=== PATIENT | female | born 1945 | race Caucasian/White ===

== ENCOUNTER 2016-04-02 11:28 | Inpatient (IN) | payer OTHER ==
[~2016-04-02] VITALS: Ht 160 cm; Wt 60.3 kg
[~2016-04-02 11:28] MED LIST: ACTOS30 MG PO; ASPIRIN EC325 MG PO; BIAXIN500 MG PO; BREO ELLIPTA I1 EACH IH; DUONEB 2.5-0.5 M3 ML AEROSOL; HYDROCODON-ACE1 EAC8 PO; KOMBIGLYZE XR1 EAC2 PO; LISINOPRIL10 MG PO; LORATADINE10 M2 PO; NEXIUM40 MG PO; NUCYNTA50 MG PO; OXYCODONE HCL5 MG PO; PERCOCET 5/31 TABLET PO; PREDNISONE20 MG PO; SPIRIVA RESPIMAT4 G1 IH; TYLENOL REGULA325 MG PO; VENTOLIN HFA18 GM IH; VICODIN 5-3001 EACH PO; VICODIN ES 7.51 EAC1 PO; ZOFRAN4 MG PO
[2016-04-02 12:09] LABS: EOSINOPHIL (%) 0.7 % (0-5); EOSINOPHIL COUNT 0.1 K/uL (0-0.3); HEMATOCRIT 27.8 % (36.0-46.0); IMMATURE GRANULOCYTE (%) 1.4 % (0.0-0.7); IMMATURE GRANULOCYTE COUNT 1.7 K/uL; LYMPHOCYTE COUNT 0.7 K/uL (1.0-2.8); MCH 31.6 PG (29.0-34.0); MCHC 33.8 G/DL (30.0-36.0); MCV 93.6 FL (83-99); MEAN PLAT.VOLUME 8.3 uM^3 (9.5-12.4); MONOCYTE (%) 7.4 % (3-12); MONOCYTE COUNT 0.9 K/uL (0-0.8); NEUTROPHIL (%) 84.8 % (45-76); NEUTROPHIL COUNT 10.6 K/uL (1.8-6.4); PLATELET COUNT 292 K/uL (156-360); RBC DIS.WIDTH-CV 14.6 % (11.8-14.6); RBC DIS.WIDTH-SD 47.9 % (39-53); RED BLOOD COUNT 2.97 M/uL (3.80-5.20); WHITE BLOOD COUNT 12.5 K/uL (4.1-10.2)
[2016-04-02 12:20] LABS: CHLORIDE 87 mEq/L (99-109); POTASSIUM 4.1 mEq/L (3.7-5.4); SODIUM 123 mEq/L (136-147)
[2016-04-02 12:22] LABS: GLUCOSE 115 mg/dL (70-99)
[2016-04-02 12:23] LABS: ANION GAP 11 MEQ/L (2-14)
[2016-04-02 12:24] LABS: TOTAL BILIRUBIN 0.5 mg/dL (0.0-1.0)
[2016-04-02 12:25] LABS: ALKALINE PHOSPHATASE 36 IU/L (3-129)
[2016-04-02 12:26] LABS: GFR ESTIMATE (CALCULATED) 43 mL/min/
[2016-04-02 12:27] LABS: UREA NITROGEN (BUN) 14 mg/dL (9-23)
[2016-04-02 12:30] LABS: D-DIMER ELISA 0.47 mg/L FEU (< 0.57)
[2016-04-02 12:32] LABS: TROP-I INTERPRETATION NEGATIVE; TROPONIN-I < 0.01 ng/mL (0.0-0.30)
[2016-04-02] MEDS ORDERED: ASPIR-LOW81 MG PO (14:46)
[2016-04-02] MEDS ORDERED: JENTADUETO 2.51 EAC2 PO (14:48)
[2016-04-02] MEDS ORDERED: OCEAN NASAL 0.645 ML BOTH NARES (14:49)
[2016-04-02] MEDS ORDERED: LISINOPRIL10 MG PO (14:50)
[2016-04-02] MEDS ORDERED: LEVOTHYROXINE125 MCG PO (14:50)
[2016-04-02] MEDS ORDERED: MYCOSTATIN 100,60 ML PO (14:51)
[2016-04-02] MEDS ORDERED: SSD25GM TP (14:51)
[2016-04-02] MEDS ORDERED: PREDNISONE10 MG PO (14:52)
[2016-04-02] MEDS ORDERED: IRON325 M1 PO (14:54)
[2016-04-02] MEDS ORDERED: CYANOCOBALAM1000 MCG PO (14:54)
[2016-04-02] MEDS ORDERED: VITAMIN D31000 UNI2 PO (14:54)
[2016-04-02 15:59] LABS: INFLUENZA A VIRAL ANTIGEN NEGATIVE; INFLUENZA B VIRAL ANTIGEN NEGATIVE
[2016-04-02 18:15] VITALS: BP 125/64
[2016-04-02 23:45] VITALS: BP 125/59
[2016-04-03 04:13] VITALS: BP 126/58
[2016-04-03 07:10] VITALS: BP 139/62
[2016-04-03 07:12] LABS: HEMATOCRIT 26.7 % (36.0-46.0); MCH 31.6 PG (29.0-34.0); MCHC 34.1 G/DL (30.0-36.0); MCV 92.7 FL (83-99); MEAN PLAT.VOLUME 8.8 uM^3 (9.5-12.4); PLATELET COUNT 263 K/uL (156-360); RBC DIS.WIDTH-CV 15.1 % (11.8-14.6); RBC DIS.WIDTH-SD 51.7 % (39-53); RED BLOOD COUNT 2.88 M/uL (3.80-5.20); WHITE BLOOD COUNT 12.7 K/uL (4.1-10.2)
[2016-04-03 07:19] LABS: EOSINOPHIL (%) 0 % (0-5); IMMATURE GRANULOCYTE (%) 0.8 % (0.0-0.7); IMMATURE GRANULOCYTE COUNT 0.1 K/uL; LYMPHOCYTE COUNT 0.2 K/uL (1.0-2.8); MONOCYTE (%) 1.3 % (3-12); MONOCYTE COUNT 0.2 K/uL (0-0.8); NEUTROPHIL (%) 96.1 % (45-76); NEUTROPHIL COUNT 12.2 K/uL (1.8-6.4)
[2016-04-03 07:35] LABS: ALKALINE PHOSPHATASE 36 IU/L (3-129); ANION GAP 9 MEQ/L (2-14); CHLORIDE 94 MEQ/L (99-109); GFR ESTIMATE (CALCULATED) 58 mL/min/; GLUCOSE 139 mg/dL (70-99); SAMPLE HEMOLYSIS CHECK 0; SAMPLE ICTERIC CHECK 0; SAMPLE LIPEMIA CHECK 0; SODIUM 128 MEQ/L (136-147); UREA NITROGEN (BUN) 14 mg/dL (9-23)
[2016-04-03 07:38] LABS: POTASSIUM 5.1 MEQ/L (3.7-5.4); TOTAL BILIRUBIN 0.3 MG/DL (0.0-1.0)
[2016-04-03 11:04] VITALS: BP 124/58
[2016-04-03 15:58] VITALS: BP 130/60
[2016-04-03 20:09] VITALS: BP 127/60
[2016-04-04] VITALS (7 sets, daily range): BP systolic 118–144; BP diastolic 58–82
[2016-04-04 07:17] LABS: MCHC 33.9 G/DL (30.0-36.0); MCV 94.3 FL (83-99); MEAN PLAT.VOLUME 8.8 uM^3 (9.5-12.4); PLATELET COUNT 259 K/uL (156-360); RBC DIS.WIDTH-CV 15.4 % (11.8-14.6); RBC DIS.WIDTH-SD 52.9 % (39-53); RED BLOOD COUNT 2.97 M/uL (3.80-5.20)
[2016-04-04 07:43] LABS: ALKALINE PHOSPHATASE 36 IU/L (3-129); ANION GAP 9 MEQ/L (2-14); CHLORIDE 93 MEQ/L (99-109); GFR ESTIMATE (CALCULATED) 47 mL/min/; GLUCOSE 118 mg/dL (70-99); POTASSIUM 4.7 MEQ/L (3.7-5.4); SAMPLE HEMOLYSIS CHECK 0; SAMPLE ICTERIC CHECK 0; SAMPLE LIPEMIA CHECK 0; SODIUM 129 MEQ/L (136-147); TOTAL BILIRUBIN 0.3 MG/DL (0.0-1.0); UREA NITROGEN (BUN) 17 mg/dL (9-23)
[2016-04-05 07:35] LABS: EOSINOPHIL (%) 0 % (0-5); HEMATOCRIT 25.3 % (36.0-46.0); IMMATURE GRANULOCYTE (%) 1.2 % (0.0-0.7); IMMATURE GRANULOCYTE COUNT 0.2 K/uL; LYMPHOCYTE COUNT 0.3 K/uL (1.0-2.8); MCH 32.7 PG (29.0-34.0); MCHC 34.4 G/DL (30.0-36.0); MCV 95.1 FL (83-99); MONOCYTE (%) 2.3 % (3-12); MONOCYTE COUNT 0.3 K/uL (0-0.8); NEUTROPHIL (%) 94.2 % (45-76); NEUTROPHIL COUNT 12.1 K/uL (1.8-6.4); PLATELET COUNT 253 K/uL (156-360); RBC DIS.WIDTH-CV 15.5 % (11.8-14.6); RBC DIS.WIDTH-SD 53.8 % (39-53); RED BLOOD COUNT 2.66 M/uL (3.80-5.20); WHITE BLOOD COUNT 12.8 K/uL (4.1-10.2)
[2016-04-05 08:00] VITALS: BP 133/65
[2016-04-05 08:09] LABS: ALKALINE PHOSPHATASE 39 IU/L (3-129); ANION GAP 9 MEQ/L (2-14); CHLORIDE 97 MEQ/L (99-109); GFR ESTIMATE (CALCULATED) 43 mL/min/; GLUCOSE 118 mg/dL (70-99); POTASSIUM 5.3 MEQ/L (3.7-5.4); SAMPLE HEMOLYSIS CHECK 0; SAMPLE ICTERIC CHECK 0; SAMPLE LIPEMIA CHECK 0; SODIUM 136 MEQ/L (136-147); TOTAL BILIRUBIN 0.3 MG/DL (0.0-1.0); UREA NITROGEN (BUN) 22 mg/dL (9-23)
[2016-04-05 15:10] VITALS: BP 140/72
[2016-04-05 20:21] VITALS: BP 162/85
[2016-04-05 22:18] VITALS: BP 135/69
[2016-04-05 22:35] VITALS: BP 150/70
[2016-04-05 23:34] VITALS: BP 156/67
[2016-04-06] VITALS (13 sets, daily range): BP systolic 138–193; BP diastolic 62–85
[2016-04-06 07:29] LABS: HEMATOCRIT 33.7 % (36.0-46.0); MCV 91.6 FL (83-99)
[2016-04-06 07:35] LABS: IRON 94 MCG/DL (35-150)
[2016-04-06 08:10] LABS: FERRITIN 128 NG/ML (10-291)
[2016-04-07 03:31] VITALS: BP 133/65
[2016-04-07 06:45] VITALS: BP 137/82
[2016-04-07 07:54] LABS: HEMATOCRIT 34.1 % (36.0-46.0); MCH 30.3 PG (29.0-34.0); MCHC 32.6 G/DL (30.0-36.0); MCV 93.2 FL (83-99); MEAN PLAT.VOLUME 9.2 uM^3 (9.5-12.4); PLATELET COUNT 228 K/uL (156-360); RBC DIS.WIDTH-CV 17.2 % (11.8-14.6); RBC DIS.WIDTH-SD 58.5 % (39-53); WHITE BLOOD COUNT 9.9 K/uL (4.1-10.2)
[2016-04-07 07:55] LABS: RED BLOOD COUNT 3.66 M/uL (3.80-5.20)
[2016-04-07 08:04] LABS: ALKALINE PHOSPHATASE 34 IU/L (3-129); ANION GAP 7 MEQ/L (2-14); CHLORIDE 94 MEQ/L (99-109); GFR ESTIMATE (CALCULATED) 47 mL/min/; GLUCOSE 131 mg/dL (70-99); POTASSIUM 4.8 MEQ/L (3.7-5.4); SAMPLE HEMOLYSIS CHECK 0; SAMPLE ICTERIC CHECK 0; SAMPLE LIPEMIA CHECK 0; SODIUM 135 MEQ/L (136-147); UREA NITROGEN (BUN) 28 mg/dL (9-23)
[2016-04-07 08:13] LABS: TOTAL BILIRUBIN 0.4 MG/DL (0.0-1.0)
[2016-04-07 12:00] VITALS: BP 149/76
[2016-04-07 14:53] LABS: POINT-OF-CARE METER ID UU13113694
[2016-04-07 17:09] VITALS: BP 153/88
[2016-04-07 19:15] VITALS: BP 155/63
[2016-04-08 00:38] VITALS: BP 163/85
[2016-04-08 04:26] VITALS: BP 174/84
[2016-04-08 07:00] LABS: HEMATOCRIT 36.1 % (36.0-46.0); MCH 30.8 PG (29.0-34.0); MCHC 32.4 G/DL (30.0-36.0); MEAN PLAT.VOLUME 9.1 uM^3 (9.5-12.4); PLATELET COUNT 222 K/uL (156-360); RBC DIS.WIDTH-CV 16.7 % (11.8-14.6); RBC DIS.WIDTH-SD 58.1 % (39-53)
[2016-04-08 07:43] LABS: ABS NEUTROPHIL COUNT 10.38; ANISOCYTOSIS 1+; EOSINOPHIL (%) 0 % (0-5); IMMATURE GRANULOCYTE (%) 5.1 % (0.0-0.7); IMMATURE GRANULOCYTE COUNT 0.6 K/uL; LYMPHOCYTE COUNT 0.3 K/uL (1.0-2.8); MACROCYTES OCC; MICROCYTOSIS RARE; MONOCYTE (%) 3.9 % (3-12); MONOCYTE COUNT 0.4 K/uL (0-0.8); NEUTROPHIL (%) 87.8 % (45-76); NEUTROPHIL COUNT 9.7 K/uL (1.8-6.4); PLAT.SUFFICIENCY ADEQUATE; USER ID CCL
[2016-04-08 08:00] VITALS: BP 168/83
[2016-04-08 09:43] LABS: BASE EXCESS 6.2 mEq/L (-3 to +3); BICARBONATE 32.2 mEq/L (22-26); CARBOXY HGB 1.8 % (0-5); METHEMOGLOBIN 1.6 % (0-1.5); PO2 83 mm Hg (80-100)
[2016-04-08 09:44] LABS: COMMENTS - BLOOD GASES A+C+; DEVICE NC; O2 FLOW 1 L/MIN; PCO2 52 mm Hg (35-45); SITE LR; TOTAL RESP RATE 14 resp/min
[2016-04-08 16:00] VITALS: BP 163/81
[2016-04-08 19:35] VITALS: BP 163/82
[2016-04-08 23:34] VITALS: BP 162/77
[2016-04-09 03:30] VITALS: BP 156/85
[2016-04-09 07:08] LABS: HEMATOCRIT 35.1 % (36.0-46.0); MCH 30.1 PG (29.0-34.0); MCHC 32.2 G/DL (30.0-36.0); MCV 93.4 FL (83-99); PLATELET COUNT 190 K/uL (156-360); RBC DIS.WIDTH-CV 16.2 % (11.8-14.6); RBC DIS.WIDTH-SD 55.4 % (39-53); RED BLOOD COUNT 3.76 M/uL (3.80-5.20); WHITE BLOOD COUNT 12.6 K/uL (4.1-10.2)
[2016-04-09 07:35] LABS: ANION GAP 10 MEQ/L (2-14); CHLORIDE 95 MEQ/L (99-109); POTASSIUM 4.4 MEQ/L (3.7-5.4); SAMPLE HEMOLYSIS CHECK 0; SAMPLE ICTERIC CHECK 0; SAMPLE LIPEMIA CHECK 0; SODIUM 136 MEQ/L (136-147)
[2016-04-09 07:40] LABS: GFR ESTIMATE (CALCULATED) 52 mL/min/; GLUCOSE 143 mg/dL (70-99); UREA NITROGEN (BUN) 33 mg/dL (9-23)
[2016-04-09 08:00] VITALS: BP 167/79
[2016-04-09 08:20] LABS: EOSINOPHIL (%) 0 % (0-5); HEMATOLOGY COMMENT 1 SMEAR COMPATIBLE; IMMATURE GRANULOCYTE (%) 3.7 % (0.0-0.7); IMMATURE GRANULOCYTE COUNT 0.5 K/uL; LYMPHOCYTE COUNT 0.5 K/uL (1.0-2.8); MONOCYTE (%) 1.8 % (3-12); MONOCYTE COUNT 0.2 K/uL (0-0.8); NEUTROPHIL (%) 90.2 % (45-76); NEUTROPHIL COUNT 11.3 K/uL (1.8-6.4); USER ID CCL
[2016-04-09 12:00] VITALS: BP 164/81
[2016-04-09 16:00] VITALS: BP 164/81
[2016-04-09 19:15] VITALS: BP 147/69
[2016-04-09 23:17] VITALS: BP 146/67
[2016-04-10 03:22] VITALS: BP 140/67
[2016-04-10 07:25] VITALS: BP 169/82
[2016-04-10 11:45] VITALS: BP 153/69
[2016-04-10 12:51] LABS: POC NON-PRINT COM 1 ND
[2016-04-10 15:30] VITALS: BP 159/74
[2016-04-10 19:39] VITALS: BP 170/75
[2016-04-10 23:53] VITALS: BP 160/74
[2016-04-11 04:05] VITALS: BP 150/71
[2016-04-11 07:10] LABS: HEMATOCRIT 32.8 % (36.0-46.0); MCH 30.4 PG (29.0-34.0); MCHC 32.9 G/DL (30.0-36.0); MCV 92.4 FL (83-99); MEAN PLAT.VOLUME 9.2 uM^3 (9.5-12.4); PLATELET COUNT 172 K/uL (156-360); RBC DIS.WIDTH-CV 15.8 % (11.8-14.6); RBC DIS.WIDTH-SD 54.1 % (39-53); RED BLOOD COUNT 3.55 M/uL (3.80-5.20); WHITE BLOOD COUNT 12.3 K/uL (4.1-10.2)
[2016-04-11 07:32] LABS: ALKALINE PHOSPHATASE 25 IU/L (3-129); ANION GAP 7 MEQ/L (2-14); CHLORIDE 88 MEQ/L (99-109); GFR ESTIMATE (CALCULATED) 52 mL/min/; GLUCOSE 127 mg/dL (70-99); POTASSIUM 4.7 MEQ/L (3.7-5.4); SAMPLE HEMOLYSIS CHECK 0; SAMPLE ICTERIC CHECK 0; SAMPLE LIPEMIA CHECK 0; SODIUM 135 MEQ/L (136-147); TOTAL BILIRUBIN 0.4 MG/DL (0.0-1.0); UREA NITROGEN (BUN) 29 mg/dL (9-23)
[2016-04-11 08:04] VITALS: BP 161/69
[2016-04-11 16:00] VITALS: BP 151/73
[2016-04-11 19:20] VITALS: BP 140/68
[2016-04-11 23:10] VITALS: BP 144/72
[2016-04-12 03:47] VITALS: BP 136/68
[2016-04-12 07:00] VITALS: BP 155/76
[2016-04-12 07:38] LABS: HEMATOCRIT 34.5 % (36.0-46.0); MCH 30.8 PG (29.0-34.0); MCHC 33.6 G/DL (30.0-36.0); MCV 91.5 FL (83-99); MEAN PLAT.VOLUME 9.7 uM^3 (9.5-12.4); PLATELET COUNT 164 K/uL (156-360); RBC DIS.WIDTH-CV 16.1 % (11.8-14.6); RBC DIS.WIDTH-SD 53.5 % (39-53); RED BLOOD COUNT 3.77 M/uL (3.80-5.20); WHITE BLOOD COUNT 13.5 K/uL (4.1-10.2)
[2016-04-12 10:30] VITALS: BP 129/70
[2016-04-12 15:42] VITALS: BP 131/62
[2016-04-12 19:20] VITALS: BP 141/67
[2016-04-12 23:50] VITALS: BP 142/67
[2016-04-13] MEDS ORDERED: K-DUR20 MEQ PO (01:32)
[2016-04-13] MEDS ORDERED: VENTOLIN HFA18 GM IH (01:32)
[2016-04-13] MEDS ORDERED: ALPRAZOLAM0.25 M2 PO (01:32)
[2016-04-13] MEDS ORDERED: LIDOCAINE20 MG/1 M5 MM (01:32)
[2016-04-13] MEDS ORDERED: METFORMIN HCL1000 MG PO (01:32)
[2016-04-13] MEDS ORDERED: POLYETHYLENE GL17 GM PO (01:32)
[2016-04-13] MEDS ORDERED: ENDOCET 5-3251 EACH PO (01:32)
[2016-04-13] MEDS ORDERED: MAG-AL PLUS SUS30 ML PO (01:32)
[2016-04-13] MEDS ORDERED: DICYCLOMINE HCL10 MG PO (01:32)
[2016-04-13] MEDS ORDERED: SUCRALFATE1 GM PO (01:32)
[2016-04-13] MEDS ORDERED: SPIRIVA RESPIMAT4 GM IH (01:32)
[2016-04-13] MEDS ORDERED: KENALOG IN ORABA5 GM MM (01:32)
[2016-04-13] MEDS ORDERED: FLUCONAZOLE200 MG PO (01:32)
[2016-04-13] MEDS ORDERED: PREDNISONE10 MG PO (01:32)
[2016-04-13] MEDS ORDERED: LEVAQUIN500 MG PO (01:45)
[2016-04-13 03:55] VITALS: BP 146/60
[2016-04-13 07:00] VITALS: BP 163/73
[2016-04-13 12:22] VITALS: BP 147/68
== END 2016-04-13 14:34 | DRG 190 ==
LOC: EME → EDBD 11:28 → EME 11:28 → 2EAST 15:54 → EDOF 15:54 → 2EAST 17:44
PROVIDERS: Emergency Medicine; Family Medicine; Internal Medicine; Specialist
DX: J44.1 Chronic obstructive pulmonary disease with (acute) exacerbation (principal); J18.9 Pneumonia, unspecified organism; E87.1 Hypo-osmolality and hyponatremia; K92.1 Melena; B37.81 Candidal esophagitis; K22.10 Ulcer of esophagus without bleeding; R13.10 Dysphagia, unspecified; R05 Cough; F41.9 Anxiety disorder, unspecified; R09.02 Hypoxemia; M79.89 Other specified soft tissue disorders; K21.9 Gastro-esophageal reflux disease without esophagitis; D64.9 Anemia, unspecified; E11.9 Type 2 diabetes mellitus without complications; E03.9 Hypothyroidism, unspecified; I10 Essential (primary) hypertension; R10.13 Epigastric pain; I50.9 Heart failure, unspecified; Z85.118 Personal history of other malignant neoplasm of bronchus and lung; Z86.718 Personal history of other venous thrombosis and embolism; Z87.891 Personal history of nicotine dependence; Z87.81 Personal history of (healed) traumatic fracture; Z88.6 Allergy status to analgesic agent; Z88.2 Allergy status to sulfonamides; Z99.81 Dependence on supplemental oxygen
CPT/HCPCS: 36600; 71010; 71020; 80048; 80053; 82272; 82607; 82728; 82746; 82803; 82948; 83540; 83605; 83880; 84466; 84484; 85014; 85018; 85025; 85027; 85379; 86850; 86900; 86901; 86920; 87040; 87070; 87205; 87502; 88305; 88312; 88342 TC; 93005; 94640; 94640 76; 94644; 94760; 94799; 99202; 99281; 99285; B4087; C9113; J0456; J0692; J1100; J1650; J1940; J2405; J2930; J7030; J7040; J7050; J7512; J7644; P9016

== ENCOUNTER 2016-04-15 08:57 | Emergency (ER) | payer OTHER ==
[~2016-04-15] VITALS: Ht 162.6 cm; Wt 60.0 kg
[~2016-04-15 08:57] MED LIST changes: +ALPRAZOLAM0.25 M2 PO; +ASPIR-LOW81 MG PO; +CYANOCOBALAM1000 MCG PO; +DICYCLOMINE HCL10 MG PO; +ENDOCET 5-3251 EACH PO; +FLUCONAZOLE200 MG PO; +IRON325 M1 PO; +JENTADUETO 2.51 EAC2 PO; +K-DUR20 MEQ PO; +KENALOG IN ORABA5 GM MM; +LEVAQUIN500 MG PO; +LEVOTHYROXINE125 MCG PO; +LIDOCAINE20 MG/1 M5 MM; +MAG-AL PLUS SUS30 ML PO; +METFORMIN HCL1000 MG PO; +MYCOSTATIN 100,60 ML PO; +OCEAN NASAL 0.645 ML BOTH NARES; +POLYETHYLENE GL17 GM PO; +PREDNISONE10 MG PO; +SPIRIVA RESPIMAT4 GM IH; +SSD25GM TP; +SUCRALFATE1 GM PO; +VITAMIN D31000 UNI2 PO
[2016-04-15 10:35] VITALS: BP 123/85
== END 2016-04-15 10:35 ==
LOC: EME 08:57
DX: G89.18 Other acute postprocedural pain (principal); E11.9 Type 2 diabetes mellitus without complications; Z98.890 Other specified postprocedural states; Z85.118 Personal history of other malignant neoplasm of bronchus and lung; Z86.12 Personal history of poliomyelitis; Z87.891 Personal history of nicotine dependence
CPT/HCPCS: 73610; 99281; 99284

== ENCOUNTER 2016-05-01 15:07 | Emergency (ER) | payer OTHER ==
[2016-05-01] VITALS (8 sets, daily range): BP systolic 80–119; BP diastolic 55–64
[~2016-05-01] VITALS: Ht 162.6 cm; Wt 61.4 kg
[2016-05-01 16:53] LABS: HEMATOCRIT 23.8 % (36.0-46.0); MCH 30.6 PG (29.0-34.0); MCHC 34.5 G/DL (30.0-36.0); MCV 88.8 FL (83-99); MEAN PLAT.VOLUME 8.4 uM^3 (9.5-12.4); RBC DIS.WIDTH-CV 16.1 % (11.8-14.6); RBC DIS.WIDTH-SD 50.7 % (39-53)
[2016-05-01 17:02] LABS: CHLORIDE 93 mEq/L (99-109); POTASSIUM 3.6 mEq/L (3.7-5.4); SODIUM 126 mEq/L (136-147)
[2016-05-01 17:04] LABS: GLUCOSE 82 mg/dL (70-99)
[2016-05-01 17:05] LABS: ANION GAP 9 MEQ/L (2-14)
[2016-05-01 17:07] LABS: ADD MIUA? NO; BILIRUBIN NEGATIVE; BLOOD NEGATIVE; COLOR YELLOW ((YELLOW)); GLUCOSE (STRIP) NEGATIVE; KETONES NEGATIVE; LEUKOCYTES NEGATIVE; NITRITE NEGATIVE; PROTEIN (STRIP) NEGATIVE; SPECIFIC GRAVITY 1.014 (1.000-1.030); UCUL ADDED? NO; UROBILINOGEN 0.2 MG/DL (0.2-1.0)
[2016-05-01 17:08] LABS: ALKALINE PHOSPHATASE 36 IU/L (3-129); GFR ESTIMATE (CALCULATED) 52 mL/min/
[2016-05-01 17:09] LABS: UREA NITROGEN (BUN) 17 mg/dL (9-23)
[2016-05-01 17:12] LABS: TROP-I INTERPRETATION NEGATIVE; TROPONIN-I 0.01 ng/mL (0.0-0.30)
[2016-05-01 17:20] LABS: TOTAL BILIRUBIN 0.3 mg/dL (0.0-1.0)
[2016-05-01 17:50] LABS: EOSINOPHIL (%) 1.7 % (0-5); EOSINOPHIL COUNT 0.1 K/uL (0-0.3); HEMATOLOGY COMMENT 1 SMEAR COMPATIBLE; IMMATURE GRANULOCYTE COUNT 2.1 K/uL; LYMPHOCYTE COUNT 0.9 K/uL (1.0-2.8); MONOCYTE (%) 18.8 % (3-12); MONOCYTE COUNT 0.8 K/uL (0-0.8); NEUTROPHIL (%) 51.9 % (45-76); NEUTROPHIL COUNT 2.2 K/uL (1.8-6.4); PLAT.SUFFICIENCY ADEQUATE; PLATELET COUNT 299 K/uL (156-360); RED BLOOD COUNT 2.68 M/uL (3.80-5.20); USER ID SS; WHITE BLOOD COUNT 4.2 K/uL (4.1-10.2)
== END 2016-05-01 19:50 | disposition home or self-care (01) ==
LOC: EME 15:07
PROVIDERS: Emergency Medicine
DX: I95.9 Hypotension, unspecified (principal); D64.9 Anemia, unspecified; E86.0 Dehydration; R05 Cough; M25.572 Pain in left ankle and joints of left foot; E11.9 Type 2 diabetes mellitus without complications; J44.9 Chronic obstructive pulmonary disease, unspecified; Z99.81 Dependence on supplemental oxygen; Z85.118 Personal history of other malignant neoplasm of bronchus and lung; Z87.891 Personal history of nicotine dependence
CPT/HCPCS: 71010; 80053; 81003; 83605; 84484; 85025; 87040; 93005; 99281; 99285; J7030

== ENCOUNTER → 2016-06-15 | Outpatient (CLI) | payer MEDICARE, OTHER | END | disposition home or self-care (01) | LOC: CDC 10:48 | DX: M25.572 Pain in left ankle and joints of left foot (principal); S82.852G Displaced trimalleolar fracture of left lower leg, subsequent encounter for closed fracture with delayed healing | CPT/HCPCS: 93000 ==

== ENCOUNTER 2016-07-11 05:21 | Day surgery (SDC) | payer OTHER ==
[~2016-07-11] VITALS: Ht 162.6 cm; Wt 60.9 kg
[~2016-07-11 05:21] MED LIST changes: +JARDIANCE25 MG PO; +LO-DOSE ASPIRIN81 M1 PO; +PROAIR HFA8.5 GM IH
[2016-07-11 06:32] LABS: HEMATOCRIT 32.1 % (36.0-46.0); MCV 101.6 FL (83-99)
[2016-07-11 06:46] LABS: CHLORIDE 107 mEq/L (99-109); POTASSIUM 4.3 mEq/L (3.7-5.4); SODIUM 140 mEq/L (136-147)
[2016-07-11 06:47] LABS: GLUCOSE 102 mg/dL (70-99)
[2016-07-11 06:49] VITALS: BP 169/69
[2016-07-11 06:49] LABS: ANION GAP 8 MEQ/L (2-14)
[2016-07-11 06:51] LABS: GFR ESTIMATE (CALCULATED) 52 mL/min/
[2016-07-11 06:52] LABS: UREA NITROGEN (BUN) 15 mg/dL (9-23)
[2016-07-11 06:56] LABS: POINT-OF-CARE METER ID UU14174212
[2016-07-11 08:47] LABS: POINT-OF-CARE METER ID UU13113675
[2016-07-11 09:20] VITALS: BP 163/78
[2016-07-11 10:32] VITALS: BP 151/72
== END 2016-07-11 10:38 | disposition home or self-care (01) ==
LOC: SDC 05:21
PROVIDERS: Orthopaedic Surgery
PROC: 0QPH04Z Removal of Internal Fixation Device from Left Tibia, Open Approach (ICD-10-PCS; principal; 2016-07-11)
DX: T84.84XA Pain due to internal orthopedic prosthetic devices, implants and grafts, initial encounter (principal); I10 Essential (primary) hypertension; K21.9 Gastro-esophageal reflux disease without esophagitis; E03.9 Hypothyroidism, unspecified; E11.9 Type 2 diabetes mellitus without complications; J44.9 Chronic obstructive pulmonary disease, unspecified; F32.9 Major depressive disorder, single episode, unspecified; M06.9 Rheumatoid arthritis, unspecified; Z85.118 Personal history of other malignant neoplasm of bronchus and lung; Z92.21 Personal history of antineoplastic chemotherapy; Z92.3 Personal history of irradiation; Z88.0 Allergy status to penicillin; Z88.2 Allergy status to sulfonamides; Z79.82 Long term (current) use of aspirin; Z87.891 Personal history of nicotine dependence
CPT/HCPCS: 73610; 76000; 80048; 82948; 85014; 85018; J0131; J0690; J1100; J1885; J2250; J2405; S0020

== ENCOUNTER 2017-02-05 14:11 | Emergency (ER) | payer OTHER ==
[~2017-02-05] VITALS: Ht 162.6 cm; Wt 63.3 kg
[2017-02-05 17:07] LABS: HEMATOCRIT 40.3 % (36.0-46.0); MCHC 34.7 G/DL (30.0-36.0); MEAN PLAT.VOLUME 9.3 uM^3 (9.5-12.4); PLATELET COUNT 339 K/uL (156-360); RBC DIS.WIDTH-CV 11.7 % (11.8-14.6); RBC DIS.WIDTH-SD 39.6 % (39-53); RED BLOOD COUNT 4.38 M/uL (3.80-5.20); WHITE BLOOD COUNT 7.8 K/uL (4.1-10.2)
[2017-02-05 17:18] LABS: CHLORIDE 90 mEq/L (99-109); POTASSIUM 5.5 mEq/L (3.7-5.4); SODIUM 125 mEq/L (136-147)
[2017-02-05 17:20] LABS: GLUCOSE 109 mg/dL (70-99)
[2017-02-05 17:21] LABS: ANION GAP 11 MEQ/L (2-14)
[2017-02-05 17:22] LABS: TOTAL BILIRUBIN 0.5 mg/dL (0.0-1.0)
[2017-02-05 17:23] LABS: ALKALINE PHOSPHATASE 60 IU/L (3-129)
[2017-02-05 17:23] LABS: ADD MIUA? NO; BILIRUBIN NEGATIVE; BLOOD NEGATIVE; COLOR YELLOW ((YELLOW)); GLUCOSE (STRIP) >=500; KETONES NEGATIVE; LEUKOCYTES NEGATIVE; NITRITE NEGATIVE; PROTEIN (STRIP) NEGATIVE; SPECIFIC GRAVITY 1.015 (1.000-1.030); UCUL ADDED? NO; UROBILINOGEN 0.2 MG/DL (0.2-1.0)
[2017-02-05 17:24] LABS: GFR ESTIMATE (CALCULATED) 39 mL/min/
[2017-02-05 17:25] LABS: UREA NITROGEN (BUN) 27 mg/dL (9-23)
[2017-02-05 17:27] LABS: LIPASE 29 U/L (1.0-51.0)
[2017-02-05 18:07] LABS: AMYLASE 70 IU/L (1-118)
[2017-02-05 21:59] VITALS: BP 153/59
== END 2017-02-05 22:00 | disposition home or self-care (01) ==
LOC: EME 14:11
DX: R10.11 Right upper quadrant pain (principal); R11.2 Nausea with vomiting, unspecified; K59.00 Constipation, unspecified; I10 Essential (primary) hypertension; Z85.118 Personal history of other malignant neoplasm of bronchus and lung; Z90.710 Acquired absence of both cervix and uterus; E11.9 Type 2 diabetes mellitus without complications; K21.9 Gastro-esophageal reflux disease without esophagitis; Z99.81 Dependence on supplemental oxygen; Z79.82 Long term (current) use of aspirin; Z88.5 Allergy status to narcotic agent; Z88.2 Allergy status to sulfonamides; Z87.891 Personal history of nicotine dependence
CPT/HCPCS: 74177; 76705; 80053; 81003; 82150; 83690; 85027; 99281; 99284; J2405; J7030; J7050

== ENCOUNTER 2017-10-16 07:08 | Day surgery (SDC) | payer OTHER ==
[~2017-10-16] VITALS: Ht 162.6 cm; Wt 64.0 kg
[~2017-10-16 07:08] MED LIST changes: +ANORO ELLIPTA1 EACH IH; +ASMANEX HFA13 GM IH; +FARXIGA10 MG PO; +MUCINEX600 MG PO; +SUPER CALCIUM600 MG PO
[2017-10-16 07:51] VITALS: BP 174/70
[2017-10-16 13:30] VITALS: BP 192/77
[2017-10-16 14:28] VITALS: BP 160/70
== END 2017-10-16 14:33 | disposition home or self-care (01) ==
LOC: SDC 07:08
PROVIDERS: Orthopaedic Surgery
PROC: 0SGG04Z Fusion of Left Ankle Joint with Internal Fixation Device, Open Approach (ICD-10-PCS; principal; 2017-10-16)
DX: M19.172 Post-traumatic osteoarthritis, left ankle and foot (principal); J44.9 Chronic obstructive pulmonary disease, unspecified; I10 Essential (primary) hypertension; E11.9 Type 2 diabetes mellitus without complications; K21.9 Gastro-esophageal reflux disease without esophagitis; F41.9 Anxiety disorder, unspecified; E03.9 Hypothyroidism, unspecified; Z88.2 Allergy status to sulfonamides; Z88.5 Allergy status to narcotic agent; Z88.8 Allergy status to other drugs, medicaments and biological substances
CPT/HCPCS: 73600; 76000; 82948; 85730; C1713; J0131; J0690; J1100; J1885; J2250; J2405; J2710; J2795; J3010; J7643; S0020